=== PATIENT | male | born 1980 | race Hispanic/Latino ===

== ENCOUNTER → 2022-05-02 | Outpatient (CLI) | payer BC ==
[~2022-05-02] MED LIST: AMLODIPINE BES2.5 MG PO; CRESTOR40 MG PO; GLUCOPHAGE XR750 MG PO; LANTUS100 UNITS/ SQ; LISINOPRIL10 MG PO; NOVOLOG MI100 UNIT/1 SQ; VICTOZA 2-0.6 MG/0.1 SQ
== END ==
LOC: RAD 13:04
PROVIDERS: ATTEND Family Medicine
DX: R06.00 Dyspnea, unspecified (principal)
CPT/HCPCS: 71046